=== PATIENT | female | born 1990 | race American Indian/Alaskan Native ===

== ENCOUNTER 2017-04-19 09:03 | Emergency (ER) | payer MEDICAID ==
[2017-04-19 09:41] VITALS: BP 105/56
--- NOTE | 2017-04-19 11:42 | Emergency Department Report ---
ED Female HPI - General Chief complaint: Abdominal Pain Stated complaint: PINK DISCHARGE Time Seen by Provider: 04/19/17 11:19 Source: patient Mode of arrival: Ambulatory Limitations: No Limitations - History of Present Illness Initial comments: 26-year-old female past medical history ovarian cysts, PID, recurrent UTIs presents with complaint of one week of slight pinkish vaginal discharge. Patient states that for approximately one week she has had slight intermittent pink vaginal discharge. LMP 03/17/17. Patient states that she is concerned that she may have been exposed to an STD as her significant other is currently having penile discharge. Patient is awake alert and oriented 3 nontoxic appearing no abdominal pain no nausea no vomiting no significant vaginal discharge at this time. Denies fevers or chills. MD Complaint: vaginal bleeding, vaginal discharge, pelvic pain Onset/Timin -: week(s) Location: suprapubic Radiation: suprapubic Severity: moderate Severity scale (0 -10): 2 Quality: cramping, aching Consistency: intermittent Worsens with: none Are you Now?: No Last Menstrual Period: 03/17/17 EDC: 12/22/17 Associated Symptoms: vaginal discharge (whitish vaginal discharge) - Related Data Sexually active: Yes : 3 Para: 2 Previous Rx's Medication Instructions Recorded Last Taken Type Doxycycline [Vibramycin CAP] 100 mg PO Q12HR #14 capsule 04/19/17 Unknown Rx Ibuprofen [Motrin] 600 mg PO Q8H PRN #30 tablet 04/19/17 Unknown Rx Allergies Allergy/AdvReac Type Severity Reaction Status Date / Time Penicillins Allergy Mild Hives Unverified 04/19/17 09:45 ED Review of Systems ROS: Stated complaint: PINK DISCHARGE Other details as noted in HPI Constitutional: denies: chills, fever Eyes: denies: eye pain, eye discharge, vision change ENT: denies: ear pain, throat pain Respiratory: denies: cough, shortness of breath, wheezing Cardiovascular: denies: chest pain, palpitations Endocrine: no symptoms reported Gastrointestinal: denies: abdominal pain, nausea, diarrhea Genitourinary: discharge. denies: urgency, dysuria Musculoskeletal: denies: back pain, joint swelling, arthralgia Skin: denies: rash, lesions Neurological: denies: headache, weakness, paresthesias Psychiatric: denies: anxiety, depression Hematological/Lymphatic: denies: easy bleeding, easy bruising ED Past Medical Hx - Past Medical History Previous Medical History?: No Hx Hypertension: No Hx CVA: No Hx Heart Attack/AMI: No Hx Congestive Heart Failure: No Hx Diabetes: No Hx Deep Vein Thrombosis: No Hx Pulmonary Embolism: No Hx GERD: Yes Hx Liver Disease: No Hx Renal Disease: No Hx of Cancer: No Hx Sickle Cell Disease: No Hx Arthritis: No Hx Headaches / Migraines: No Hx Seizures: No Hx Kidney Stones: No Hx Psychiatric Treatment: No Hx Asthma: No Hx COPD: No Hx Tuberculosis: No Hx Dementia: No Hx HIV: No Additional medical history: cyst on ovary. PID. Kidney infection. vaginal bacteria infection - Surgical History Past Surgical History?: Yes Additional Surgical History: C-sectionx1 - Social History Smoking Status: Never Smoker Substance Use Type: Alcohol, Marijuana - Medications Home Medications: Home Medications Medication Instructions Recorded Confirmed Last Taken Type Doxycycline [Vibramycin CAP] 100 mg PO Q12HR #14 capsule 04/19/17 Unknown Rx Ibuprofen [Motrin] 600 mg PO Q8H PRN #30 tablet 04/19/17 Unknown Rx ED Physical Exam - General Limitations: No Limitations General appearance: alert, in no apparent distress - Head Head exam: Present: atraumatic, normocephalic - Eye Eye exam: Present: normal appearance, PERRL, EOMI - ENT ENT exam: Present: mucous membranes moist - Neck Neck exam: Present: normal inspection, full ROM - Respiratory Respiratory exam: Present: normal lung sounds bilaterally. Absent: respiratory distress - Cardiovascular Cardiovascular Exam: Present: regular rate, normal rhythm. Absent: systolic murmur, diastolic murmur, rubs, gallop - GI/Abdominal GI/Abdominal exam: Present: soft (abdomen is soft nontender nondistended O4 quadrants, patient has no iliopsoas sign and no Rovsing sign no tenderness at McBurney's point), normal bowel sounds - External exam: Present: normal external exam Speculum exam: Present: normal speculum exam Bi-manual exam: Present: normal bi-manual exam - Extremities Exam Extremities exam: Present: normal inspection - Back Exam Back exam: Present: normal inspection - Neurological Exam Neurological exam: Present: alert, oriented X3, CN II-XII intact, normal gait - Psychiatric Psychiatric exam: Present: normal affect, normal mood - Skin Skin exam: Present: warm, dry, intact, normal color. Absent: rash ED Course Vital Signs 04/19/17 09:33 Temperature 98.1 F Pulse Rate 69 Respiratory 18 Rate Blood Pressure 105/56 O2 Sat by Pulse 100 Oximetry ED Medical Decision Making - Lab Data Result diagrams: 04/19/17 11:53 04/19/17 11:53 - Medical Decision Making A/P: possible PID, pelvic pain 1- no clinical signs of appendicitus, labs within normal limits, no clinical Rovsing sign and no peritoneal signs iliopsoas sign negative no tenderness at McBurney's point patient has no nausea no vomiting no diarrhea no fevers or chills and is clinically eating and drinking during my assessment of her. UA unremarkable, patient is not currently 2- will tx empirically as pt states her sex partner is having urethritis type symptoms. Will add course of doxycycline as patient states that she is having some intermittent pelvic pain 3- motrin PRN 4- pelvic exam unremarkable, wet prep unremarkable, Chlamydia and gonorrhea cultures sent. 5-I referred patient to primary care as well as [facility] Critical care attestation.: If time is entered above; I have spent that time in minutes in the direct care of this critically ill patient, excluding procedure time. ED Disposition Clinical Impression: Pelvic pain Disposition: PAT REG,NO TRIAGE Is pt being admited?: No Does the pt Need Aspirin: No Condition: Stable Instructions: Pelvic Inflammatory Disease (ED), Ovarian Cyst (ED) Prescriptions: Doxycycline [Vibramycin CAP] 100 mg PO Q12HR #14 capsule Ibuprofen [Motrin] 600 mg PO Q8H PRN #30 tablet PRN Reason: Pain Referrals: [facility] [Provider Group] - 3-5 Days [facility] [Provider Group] - 3-5 Days Forms: Accompanied Note, Work/School Release Form(ED)
[2017-04-19 12:04] LABS: Basophils % (Auto) 1.2 % (0.0-1.8); Eosinophils % (Auto) 0.9 % (0.0-4.3); Hematocrit 42.5 % (30.3-42.9); Hemoglobin 13.9 gm/dl (10.1-14.3); Mean Corpuscular HGB Conc 33 % (30-34); Mean Corpuscular Hemoglobin 29 pg (28-32); Mean Corpuscular Volume 89 fl (79-97); Platelet Count 214 K/mm3 (140-440); Red Blood Count 4.79 M/mm3 (3.65-5.03); White Blood Count 4.8 K/mm3 (4.5-11.0)
[2017-04-19 12:11] LABS: Bilirubin,Urine NEG (Negative); Blood,Urine NEG (Negative); Ketones,Urine NEG (Negative); Leukocyte Esterase,Urine NEG (Negative); Mucus,Urine 1+ /HPF; Nitrite,Urine NEG (Negative); Protein,Urine <15 mg/dL mg/dL (Negative)
[2017-04-19 12:23] LABS: Anion Gap 14 mmol/L; BUN/Creatinine Ratio 18; Blood Urea Nitrogen 11 mg/dL (7-17); Calcium 8.9 mg/dL (8.4-10.2); Carbon Dioxide 29 mmol/L (22-30); Chloride 103.2 mmol/L (98-107); Glucose 86 mg/dL (65-100); Potassium 4.2 mmol/L (3.6-5.0); Sodium 142 mmol/L (137-145)
[2017-04-19] MEDS ORDERED: ZITHROMAX PO ONE (13:34)
[2017-04-19] MEDS ORDERED: XYLOCAINE 1% MPF 5 mL INFILTRATI ONE (13:36)
[2017-04-19] MEDS ORDERED: ROCEPHIN IM ONE (13:36)
== END 2017-04-19 14:03 | disposition left against medical advice (07) ==
LOC: ED 09:03
DX: R10.2 Pelvic and perineal pain (principal); N89.8 Other specified noninflammatory disorders of vagina; K21.9 Gastro-esophageal reflux disease without esophagitis; F12.10 Cannabis abuse, uncomplicated; Z88.0 Allergy status to penicillin
CPT/HCPCS: 36415; 80048; 81001; 81025; 84702; 85025; 86850; 86900; 86901; 87086; 87210; 87591; 96372; 99284; J0696

== ENCOUNTER 2017-05-13 14:15 | Emergency (ER) | payer MEDICAID, OTHER ==
[2017-05-13 15:42] LABS: Anion Gap 17 mmol/L; BUN/Creatinine Ratio 21; Blood Urea Nitrogen 15 mg/dL (7-17); Carbon Dioxide 28 mmol/L (22-30); Chloride 101.2 mmol/L (98-107); Glucose 84 mg/dL (65-100); Potassium 3.9 mmol/L (3.6-5.0); Sodium 142 mmol/L (137-145)
[2017-05-13 15:49] LABS: Hematocrit 44.1 % (30.3-42.9); Hemoglobin 15.1 gm/dl (10.1-14.3); Mean Corpuscular HGB Conc 34 % (30-34); Mean Corpuscular Hemoglobin 30 pg (28-32); Mean Corpuscular Volume 87 fl (79-97); Platelet Count 138 K/mm3 (140-440); Red Cell Distribution Width 14.7 % (13.2-15.2); White Blood Count 3.9 K/mm3 (4.5-11.0)
[2017-05-13 16:01] LABS: Creatine Kinase 351 units/L (30-135)
[2017-05-13 16:14] LABS: Bacteria,Urine 1+ /HPF (Negative); Bilirubin,Urine NEG (Negative); Blood,Urine LG (Negative); Ketones,Urine TR mg/dL (Negative); Leukocyte Esterase,Urine NEG (Negative); Mucus,Urine FEW /HPF; Nitrite,Urine NEG (Negative); Urobilinogen,Urine < 2.0 mg/dL (<2.0)
[2017-05-13 16:38] LABS: Anisocytosis 1+; Basophils % (Manual) 0 % (0.0-1.8); Blastocytes % (Manual) 0 %; Eosinophils % (Manual) 0 % (0.0-4.3)
[2017-05-13 16:39] LABS: Diff Status Complete; Ovalocytes Few; Platelet Estimate Consistent w Auto; Poikilocytosis 1+
[2017-05-14] MEDS ORDERED: ZOFRAN IV ONE (06:34)
[2017-05-14] MEDS ORDERED: MORPHINE IV ONE (06:34)
--- NOTE | 2017-05-14 06:36 | Emergency Department Report ---
HPI - General Chief Complaint: Abdominal Pain Time Seen by Provider: 05/14/17 06:21 - HPI HPI: Room 24 The patient is a 26-year-old female presented with a chief complaint of abdominal pain. The patient states 3 days ago she developed a cough of productive. The patient states she only has chest pain when she coughs. The patient states for the past 1.5 weeks she's had intermittent right-sided abdominal pain sharp in nature. The patient states for the past 2 days the pain has been constant. Patient was to nausea but denies vomiting. Patient denies dysuria. Patient states she is currently on her cycle. Patient was to subjective fever at home with chills Location: [See above] Duration: [See above] Quality: Sharp Severity: Moderate Modifying factors: [see above] Context: [see above] Mode of transportation: [not driving] ED Past Medical Hx - Past Medical History Hx Congestive Heart Failure: Yes ( cardiomyopathy) Hx GERD: Yes Additional medical history: cyst on ovary. PID. Kidney infection. vaginal bacteria infection - Surgical History Additional Surgical History: C-sectionx1 - Family History Family history: no significant - Social History Smoking Status: Never Smoker Substance Use Type: Alcohol (occasional) - Medications Home Medications: Home Medications Medication Instructions Recorded Confirmed Last Taken Type Doxycycline [Vibramycin CAP] 100 mg PO Q12HR #14 capsule 04/19/17 Unknown Rx Ibuprofen [Motrin] 600 mg PO Q8H PRN #30 tablet 04/19/17 Unknown Rx Ciprofloxacin HCl [Ciprofloxacin 500 mg PO BID #20 tablet 05/14/17 Unknown Rx TAB] Ibuprofen 800 mg PO Q8H #20 tablet 05/14/17 Unknown Rx traMADol [Ultram] 50 mg PO Q6HR PRN #10 tablet 05/14/17 Unknown Rx ED Review of Systems ROS: Stated complaint: CHEST PAIN,SOB Other details as noted in HPI Comment: All other systems reviewed and negative Constitutional: denies: chills, fever Eyes: denies: eye pain, eye discharge, vision change ENT: denies: ear pain, throat pain Respiratory: cough Cardiovascular: chest pain. denies: palpitations Endocrine: no symptoms reported Gastrointestinal: abdominal pain, nausea. denies: vomiting Genitourinary: denies: urgency, dysuria, discharge Musculoskeletal: back pain Skin: denies: rash, lesions Neurological: denies: headache, weakness, paresthesias Psychiatric: denies: anxiety, depression Hematological/Lymphatic: denies: easy bleeding, easy bruising Physical Exam - Physical Exam Vital Signs: Vital Signs 05/13/17 05/14/17 05/14/17 15:02 06:18 06:19 Temperature 98.2 F Pulse Rate 74 74 60 Respiratory 20 13 12 Rate Blood Pressure 97/64 109/68 O2 Sat by Pulse 98 Oximetry 05/14/17 05/14/17 05/14/17 06:20 06:22 06:24 Temperature 98.5 F Pulse Rate 67 71 Respiratory 13 15 Rate Blood Pressure 109/68 109/68 O2 Sat by Pulse 98 Oximetry 05/14/17 06:27 Temperature Pulse Rate Respiratory 16 Rate Blood Pressure O2 Sat by Pulse 99 Oximetry Physical Exam: GENERAL: The patient is well-developed well-nourished female lying on stretcher not appearing to be in acute distress. [] HEENT: Normocephalic. Atraumatic. Extraocular motions are intact. Patient has moist mucous membranes. NECK: Supple. Trachea midline CHEST/LUNGS: Clear to auscultation. There is no respiratory distress noted. HEART/CARDIOVASCULAR: Regular. There is no tachycardia. There is no gallop rub or murmur. ABDOMEN: Abdomen is soft, nontender. Patient has normal bowel sounds. There is no abdominal distention. SKIN: There is no rash. There is no edema. There is no diaphoresis. NEURO: The patient is awake, alert, and oriented. The patient is cooperative. The patient has normal speech MUSCULOSKELETAL: There is no evidence of acute injury. ED Course Vital Signs 05/13/17 05/14/17 05/14/17 15:02 06:18 06:19 Temperature 98.2 F Pulse Rate 74 74 60 Respiratory 20 13 12 Rate Blood Pressure 97/64 109/68 O2 Sat by Pulse 98 Oximetry 05/14/17 05/14/17 05/14/17 06:20 06:22 06:24 Temperature 98.5 F Pulse Rate 67 71 Respiratory 13 15 Rate Blood Pressure 109/68 109/68 O2 Sat by Pulse 98 Oximetry 05/14/17 06:27 Temperature Pulse Rate Respiratory 16 Rate Blood Pressure O2 Sat by Pulse 99 Oximetry - Consultations Consultation #1: 05/14/17 09:05 Cardiology called 05/14/[address] Holly-recommends repeating one more set of cardiac enzymes and if negative the patient may be discharged home ED Medical Decision Making - Lab Data Result diagrams: 05/13/17 15:14 05/13/17 15:14 Laboratory Tests 05/13/17 05/13/17 05/13/17 15:14 15:14 15:19 WBC 3.9 L RBC 5.10 H Hgb 15.1 H Hct 44.1 H MCV 87 MCH 30 MCHC 34 RDW 14.7 Plt Count 138 L Add Manual Diff Complete Total Counted 100 Seg Neutrophils % Bindery Cutter Operator Seg Neuts % (Manual) 22.0 L Band Neutrophils % 6.0 Lymphocytes % (Manual) 58.0 H Reactive Lymphs % (Man) 3.0 Monocytes % (Manual) 11.0 H Eosinophils % (Manual) 0 Basophils % (Manual) 0 Metamyelocytes % 0 Myelocytes % 0 Promyelocytes % 0 Blast Cells % 0 Nucleated RBC % Not Reportable Seg Neutrophils # Man 0.9 L Band Neutrophils # 0.2 Lymphocytes # (Manual) 2.3 Abs React Lymphs (Man) 0.1 Monocytes # (Manual) 0.4 Eosinophils # (Manual) 0.0 Basophils # (Manual) 0.0 Metamyelocytes # 0.0 Myelocytes # 0.0 Promyelocytes # 0.0 Blast Cells # 0.0 WBC Morphology Not Reportable Hypersegmented Neuts Not Reportable Hyposegmented Neuts Not Reportable Hypogranular Neuts Not Reportable Smudge Cells Not Reportable Toxic Granulation Not Reportable Toxic Vacuolation Not Reportable Dohle Bodies Not Reportable Pelger-Huet Anomaly Not Reportable Ca Rods Not Reportable Platelet Estimate Consistent w auto Clumped Platelets Not Reportable Plt Clumps, EDTA Not Reportable Large Platelets Not Reportable Giant Platelets Not Reportable Platelet Satelliting Not Reportable Plt Morphology Comment Not Reportable RBC Morphology Not Reportable Dimorphic RBCs Not Reportable Polychromasia Not Reportable Hypochromasia Not Reportable Poikilocytosis 1+ Anisocytosis 1+ Microcytosis Not Reportable Macrocytosis Not Reportable Spherocytes Not Reportable Pappenheimer Bodies Not Reportable Sickle Cells Not Reportable Target Cells Not Reportable Tear Drop Cells Not Reportable Ovalocytes Few Helmet Cells Not Reportable [place] Bodies Not Reportable [place] Rings Not Reportable Sonido Cells Not Reportable Bite Cells Not Reportable Crenated Cell Not Reportable Elliptocytes Not Reportable Acanthocytes (Spur) Not Reportable Rouleaux Not Reportable Hemoglobin C Crystals Not Reportable Schistocytes Not Reportable Malaria parasites Not Reportable Adonis Bodies Not Reportable Hem Pathologist Commnt No Sodium 142 Potassium 3.9 Chloride 101.2 Carbon Dioxide 28 Anion Gap 17 BUN 15 Creatinine 0.7 Estimated GFR > 60 BUN/Creatinine Ratio 21 Glucose 84 Calcium 9.0 Total Creatine Kinase 351 H CK-MB (CK-2) 2.0 CK-MB (CK-2) Rel Index 0.5 Troponin T < 0.010 Urine Color Urine Turbidity Urine pH Ur Specific [place] Urine Protein Urine Glucose (UA) Urine Ketones Urine Blood Urine Nitrite Urine Bilirubin Urine Urobilinogen Ur Leukocyte Esterase Urine WBC (Auto) Urine RBC (Auto) U Epithel Cells (Auto) Urine Bacteria (Auto) Urine Mucus Urine HCG, Qual 05/13/17 15:38 WBC RBC Hgb Hct MCV MCH MCHC RDW Plt Count Add Manual Diff Total Counted Seg Neutrophils % Seg Neuts % (Manual) Band Neutrophils % Lymphocytes % (Manual) Reactive Lymphs % (Man) Monocytes % (Manual) Eosinophils % (Manual) Basophils % (Manual) Metamyelocytes % Myelocytes % Promyelocytes % Blast Cells % Nucleated RBC % Seg Neutrophils # Man Band Neutrophils # Lymphocytes # (Manual) Abs React Lymphs (Man) Monocytes # (Manual) Eosinophils # (Manual) Basophils # (Manual) Metamyelocytes # Myelocytes # Promyelocytes # Blast Cells # WBC Morphology Hypersegmented Neuts Hyposegmented Neuts Hypogranular Neuts Smudge Cells Toxic Granulation Toxic Vacuolation Dohle Bodies Pelger-Huet Anomaly Ca Rods Platelet Estimate Clumped Platelets Plt Clumps, EDTA Large Platelets Giant Platelets Platelet Satelliting Plt Morphology Comment RBC Morphology Dimorphic RBCs Polychromasia Hypochromasia Poikilocytosis Anisocytosis Microcytosis Macrocytosis Spherocytes Pappenheimer Bodies Sickle Cells Target Cells Tear Drop Cells Ovalocytes Helmet Cells [place] Bodies [place] Rings [place] Cells Bite Cells Crenated Cell Elliptocytes Acanthocytes (Spur) Rouleaux Hemoglobin C Crystals Schistocytes Malaria parasites Adonis Bodies Hem Pathologist Commnt Sodium Potassium Chloride Carbon Dioxide Anion Gap BUN Creatinine Estimated GFR BUN/Creatinine Ratio Glucose Calcium Total Creatine Kinase CK-MB (CK-2) CK-MB (CK-2) Rel Index Troponin T Urine Color Yellow Urine Turbidity Clear Urine pH 6.0 Ur Specific [place] 1.018 Urine Protein 30 mg/dl Urine Glucose (UA) Neg Urine Ketones Tr Urine Blood Lg Urine Nitrite Neg Urine Bilirubin Neg Urine Urobilinogen < 2.0 Ur Leukocyte Esterase Neg Urine WBC (Auto) 25.0 H Urine RBC (Auto) 83.0 U Epithel Cells (Auto) 1.0 Urine Bacteria (Auto) 1+ Urine Mucus Few Urine HCG, Qual Negative - EKG Data -: EKG Interpreted by Me EKG shows normal: sinus rhythm Rate: normal - EKG Data When compared to previous EKG there are: previous EKG unavailable Interpretation: nonspecific ST-T wave yamel (biphasic T waves in leads V4, V5. T- wave inversion in lead V6) - Radiology Data Radiology results: report reviewed (CT abdomen and pelvis), image reviewed (CT abdomen and pelvis, chest x-ray) interpreted by me: Chest [id number] left lower lobe infiltrate. No pneumothorax CT abdomen and pelvis (read by radiologist)-no acute process in the abdomen and pelvis patchy infiltrates in the lingula and left lower lobe. - Differential Diagnosis appendicitis, UTI, pyelonephritis, ACS, GERD, pneumonia Critical care attestation.: If time is entered above; I have spent that time in minutes in the direct care of this critically ill patient, excluding procedure time. ED Disposition Clinical Impression: Pneumonia, T wave inversion in EKG Disposition: DC-01 TO HOME OR SELFCARE Is pt being admited?: No Does the pt Need Aspirin: No Condition: Stable Instructions: Bacterial Pneumonia (ED), Abdominal Pain (ED) Additional Instructions: Return to the emergency department immediately should you develop worsening symptoms, fever, inability to tolerate food or liquid or any other concerns. Prescriptions: Ciprofloxacin HCl [Ciprofloxacin TAB] 500 mg PO BID #20 tablet Ibuprofen 800 mg PO Q8H #20 tablet traMADol [Ultram] 50 mg PO Q6HR PRN #10 tablet PRN Reason: Pain Referrals: PRIMARY CARE, [Primary Care Provider] - 3-5 Days EH HOLLY MD [Staff Physician] - 3-5 Days Time of Disposition: 10:23
[2017-05-14] MEDS ORDERED: MORPHINE ONE (06:50)
[2017-05-14] MEDS ORDERED: NACL ONE (07:13)
--- NOTE | 2017-05-14 07:43 | Cat Scan Report ---
FINAL REPORT EXAM: CT ABDOMEN PELVIS W CON HISTORY: right-sided abdominal pain TECHNIQUE: Routine axial imaging was obtained of the abdomen and pelvis following the intravenous injection of 100 cc of Omnipaque 300. Oral contrast was not administered. Sagittal and coronal reconstructions were reviewed FINDINGS: The lung bases reveal patchy infiltrates in the lingula and left lower lobe. Pleural fluid is not seen. The liver, gallbladder, pancreas, spleen, and adrenal glands appear normal. The kidneys enhance normally. The vascular structures also enhance normally. The bowel loops are normal in caliber and course. The appendix is normal in caliber. There is no evidence of free fluid or adenopathy. The uterus and bladder appear normal. The skeletal structures are well-maintained. IMPRESSION: No acute process in the abdomen and pelvis. Patchy infiltrates in the lingula and left lower lobe.
--- NOTE | 2017-05-14 09:06 | XRay Report ---
Chest 2 views: History: Chest pain and cough. Findings: Borderline cardiomegaly. Trachea is midline. Ill-defined airspace opacities lingula left lung. Normal CP angles. Impression: Pneumonia or discoid atelectasis lingula.
[2017-05-14 10:07] LABS: Creatine Kinase MB 1.4 ng/mL (0.0-4.0)
[2017-05-14 10:08] LABS: Creatine Kinase 200 units/L (30-135)
[2017-05-14 10:59] VITALS: BP 110/81
== END 2017-05-14 10:58 | disposition home or self-care (01) ==
LOC: ED 14:15
DX: J18.9 Pneumonia, unspecified organism (principal); K21.9 Gastro-esophageal reflux disease without esophagitis
CPT/HCPCS: 36415; 71020; 74177; 80048; 81001; 81025; 82550; 82553; 84484; 85007; 85025; 93005; 93010; 96374; 96375; 99284; J2270; J2405; Q9967

== ENCOUNTER 2018-09-02 15:25 | Emergency (ER) | payer SELFPAY ==
--- NOTE | 2018-09-02 15:35 | Emergency Department Report ---
Blank Doc - Documentation Documentation: This is a 28-year-old female that presents with left midback pain. Patient st ated symptoms started 08/30/2018. Patient stated is aggravated with movement relieved with rest. Stated has pain also with deep breathes. Denies any chest pain. Denies any other symptoms. V/S stables. Tenderness to left distal scapula. This initial assessment diagnostic orders/clinical plan/treatment(s) is/are subject to change based on patient's health status, clinical progression and re-assessment by fellow clinical providers in the ED. Further treatment and workup at subsequent clinical providers discretion. Patient/guardians urged not to elope from ED s their condition may be serious if not clinically assessed and managed. Initial orders include: 1-patient sent to [facility] for further evaluation and treatment.
--- NOTE | 2018-09-02 20:30 | XRay Report ---
FINAL REPORT PROCEDURE: XR CHEST ROUTINE 2V TECHNIQUE: PA and lateral chest radiographs were obtained. CPT 03205 HISTORY: left back pain COMPARISON: No prior studies are available for comparison. FINDINGS: Heart: Normal. Mediastinum/Vessels: Normal. Lungs/Pleural space: Normal. Bony thorax: No acute osseous abnormality. Other: IMPRESSION: Normal examination.
--- NOTE | 2018-09-02 20:57 | Emergency Department Report ---
ED General Adult HPI - General Chief complaint: Extremity Problem,Nontraumatic Stated complaint: BACK PAIN Time Seen by Provider: 09/02/18 15:31 Source: patient Mode of arrival: Ambulatory Limitations: No Limitations - History of Present Illness Initial comments: 28-year-old -[place] female presents to the emergency department. Pain to her left scapula and rib region and it been present since Cervantes's Day. States that she was doing her hair and after doing her hair. She went to work and noticed pain to that area when she raised her arms. Pain with associated shortness of breath, chest pain, hemoptysis,, hematemesis, hematochezia. She reported no numbness or tingling. She reported no palpitations. She reports no headache or or dizziness.. Pain is dull and and throbbing and she reports no previous history of any pain to that area. -: Sudden Radiation: back Severity scale (0 -10): 8 Consistency: constant Improves with: none Worsens with: other (deep breaths and certain movement) Associated Symptoms: denies other symptoms Treatments Prior to Arrival: none - Related Data Previous Rx's Medication Instructions Recorded Last Taken Type Doxycycline [Vibramycin CAP] 100 mg PO Q12HR #14 capsule 04/19/17 Unknown Rx Ibuprofen [Motrin] 600 mg PO Q8H PRN #30 tablet 04/19/17 Unknown Rx Ciprofloxacin HCl [Ciprofloxacin 500 mg PO BID #20 tablet 05/14/17 Unknown Rx TAB] Ibuprofen 800 mg PO Q8H #20 tablet 05/14/17 Unknown Rx traMADol [Ultram] 50 mg PO Q6HR PRN #10 tablet 05/14/17 Unknown Rx Ketorolac [Toradol] 10 mg PO Q6H PRN #15 tablet 09/02/18 Unknown Rx Allergies Allergy/AdvReac Type Severity Reaction Status Date / Time Penicillins Allergy Mild Hives Verified 05/14/17 06:51 ED Review of Systems ROS: Stated complaint: BACK PAIN Other details as noted in HPI Constitutional: denies: chills, fever Eyes: denies: eye pain, eye discharge, vision change ENT: denies: ear pain, throat pain Respiratory: denies: cough, shortness of breath, wheezing Cardiovascular: denies: chest pain, palpitations Endocrine: no symptoms reported Gastrointestinal: denies: abdominal pain, nausea, diarrhea Genitourinary: denies: urgency, dysuria, discharge Musculoskeletal: denies: back pain, joint swelling, arthralgia Skin: denies: rash, lesions Neurological: denies: headache, weakness, paresthesias Psychiatric: denies: anxiety, depression Hematological/Lymphatic: denies: easy bleeding, easy bruising ED Past Medical Hx - Past Medical History Previous Medical History?: Yes Hx Hypertension: No Hx CVA: No Hx Heart Attack/AMI: No Hx Congestive Heart Failure: Yes ( cardiomyopathy) Hx Diabetes: No Hx Deep Vein Thrombosis: No Hx Pulmonary Embolism: No Hx GERD: Yes Hx Liver Disease: No Hx Renal Disease: No Hx Sickle Cell Disease: No Hx Arthritis: No Hx Headaches / Migraines: No Hx Seizures: No Hx Kidney Stones: No Hx Psychiatric Treatment: No Hx Asthma: No Hx COPD: No Hx Tuberculosis: No Hx Dementia: No Hx HIV: No Additional medical history: cyst on ovary. PID. Kidney infection. vaginal bacteria infection - Surgical History Past Surgical History?: Yes Additional Surgical History: C-sectionx1 - Social History Smoking Status: Former Smoker Substance Use Type: Prescribed - Medications Home Medications: Home Medications Medication Instructions Recorded Confirmed Last Taken Type Doxycycline [Vibramycin CAP] 100 mg PO Q12HR #14 capsule 04/19/17 Unknown Rx Ibuprofen [Motrin] 600 mg PO Q8H PRN #30 tablet 04/19/17 Unknown Rx Ciprofloxacin HCl [Ciprofloxacin 500 mg PO BID #20 tablet 05/14/17 Unknown Rx TAB] Ibuprofen 800 mg PO Q8H #20 tablet 05/14/17 Unknown Rx traMADol [Ultram] 50 mg PO Q6HR PRN #10 tablet 05/14/17 Unknown Rx Ketorolac [Toradol] 10 mg PO Q6H PRN #15 tablet 09/02/18 Unknown Rx ED Physical Exam - General Limitations: No Limitations General appearance: alert, in no apparent distress - Head Head exam: Present: atraumatic, normocephalic, normal inspection - Eye Eye exam: Present: normal appearance, PERRL, EOMI. Absent: scleral icterus, nystagmus, periorbital swelling Pupils: Present: normal accommodation - ENT ENT exam: Present: normal exam, normal orophraynx, mucous membranes moist, TM's normal bilaterally, normal external ear exam - Neck Neck exam: Present: normal inspection, full ROM - Respiratory Respiratory exam: Present: normal lung sounds bilaterally. Absent: respiratory distress, wheezes, rales, rhonchi, chest wall tenderness, accessory muscle use, decreased breath sounds - Cardiovascular Cardiovascular Exam: Present: regular rate, normal rhythm. Absent: systolic murmur, diastolic murmur, rubs, gallop - GI/Abdominal GI/Abdominal exam: Present: soft, normal bowel sounds. Absent: tenderness, guarding, rebound, hyperactive bowel sounds, organomegaly - Extremities Exam Extremities exam: Present: normal inspection, full ROM, normal capillary refill - Back Exam Back exam: Present: normal inspection, other (the tenderness with palpation along the sternal border into the intercostal region of the left ribs. No swelling, no step-off, no seizure. No crepitus is appreciated. No bruising is appreciated. There is full range of motion of the left shoulder with no sulcus sign. No pain with [place], chest or branches. There is pain with apposed flexion and extending of the left shoulder. There is full range of motion with no limitations.Sounds are normal) - Neurological Exam Neurological exam: Present: alert, oriented X3, CN II-XII intact, normal gait - Psychiatric Psychiatric exam: Present: normal affect, normal mood - Skin Skin exam: Present: warm, dry, intact, normal color. Absent: rash ED Course Vital Signs 09/02/18 15:31 Temperature 98.3 F Pulse Rate 82 Respiratory 16 Rate Blood Pressure 123/69 O2 Sat by Pulse 100 Oximetry ED Medical Decision Making - Radiology Data Radiology results: report reviewed The neck x-ray is negative Critical care attestation.: If time is entered above; I have spent that time in minutes in the direct care of this critically ill patient, excluding procedure time. ED Disposition Clinical Impression: Musculoskeletal pain Disposition: DC-01 TO HOME OR SELFCARE Is pt being admited?: No Does the pt Need Aspirin: No Condition: Stable Instructions: Musculoskeletal Pain (ED), Thoracic Pain (ED) Prescriptions: Ketorolac [Toradol] 10 mg PO Q6H PRN #15 tablet PRN Reason: Pain Referrals: HIREN CALVIN MD [Primary Care Provider] - 3-5 Days [facility] [Provider Group] - 3-5 Days
[2018-09-02 21:29] VITALS: BP 116/67
== END 2018-09-02 21:35 | disposition home or self-care (01) ==
LOC: ED 15:25
DX: R07.81 Pleurodynia (principal); M25.512 Pain in left shoulder; K21.9 Gastro-esophageal reflux disease without esophagitis; I50.9 Heart failure, unspecified; Z87.891 Personal history of nicotine dependence; Z79.899 Other long term (current) drug therapy; Z88.0 Allergy status to penicillin
CPT/HCPCS: 71046; 99283

== ENCOUNTER 2018-12-29 08:59 | Emergency (ER) | payer MEDICAID, OTHER ==
[2018-12-29 10:17] LABS: Basophils % (Auto) 0.8 % (0.0-1.8); Eosinophils % (Auto) 0.6 % (0.0-4.3); Hematocrit 34.1 % (30.3-42.9); Hemoglobin 11.4 gm/dl (10.1-14.3); Lymphocytes # (Auto) 1.2 K/mm3 (1.2-5.4); Lymphocytes % (Auto) 20.7 % (13.4-35.0); Mean Corpuscular HGB Conc 34 % (30-34); Mean Corpuscular Volume 90 fl (79-97); Monocytes # (Auto) 0.4 K/mm3 (0.0-0.8); Monocytes % (Auto) 6.6 % (0.0-7.3); Platelet Count 195 K/mm3 (140-440); Red Blood Count 3.79 M/mm3 (3.65-5.03)
[2018-12-29 10:53] LABS: INR 1.28 (0.87-1.13); Partial Thromboplastin Time 25.2 Sec. (24.2-36.6)
[2018-12-29 11:30] LABS: Alanine Aminotransferase 20 units/L (7-56); Albumin 3.7 g/dL (3.9-5); BUN/Creatinine Ratio 20; Blood Urea Nitrogen 14 mg/dL (7-17); Calcium 8.6 mg/dL (8.4-10.2); Hemolysis Index 3
--- NOTE | 2018-12-29 11:32 | Ultrasound Report ---
PROCEDURE: US OB <= 14 WEEKS FETUS TECHNIQUE: HISTORY: preg bleeding abortifacient FINDINGS: Real-time ultrasound the pelvis was performed by transabdominal technique. The uterus measures 5.3 x 4.5 cm. The endometrial stripe measures 2.2 cm which is thickened. There is an echogenic structure in the upper vagina, which is likely a fetus, measuring approximately 2.6 cm. No cardiac activity is present. The right ovary measures 2.6 x 1.9 x 2.3 cm the left ovary 2.9 x 1.8 x 1.9 cm. There is no adnexal ma ss or evidence of ovarian torsion. IMPRESSION: Echogenic material in the vagina which is likely a fetus, without cardiac activity Thickened endometrial stripe Normal ovaries This document is electronically signed by Dallas Stephens MD., December 29 2018 11:29:50 AM ET
[2018-12-29 11:38] LABS: Bilirubin,Direct < 0.2 mg/dL (0-0.2)
[2018-12-29 12:48] LABS: Bilirubin,Urine NEG (Negative); Blood,Urine LG (Negative); Color,Urine Yellow (Yellow); Urobilinogen,Urine < 2.0 mg/dL (<2.0)
[2018-12-29 12:50] LABS: RBC,Urine > 182.0 /HPF (0.0-6.0)
--- NOTE | 2018-12-29 14:10 | Emergency Department Report ---
ED General Adult HPI - General Chief complaint: Vaginal Bleeding Stated complaint: VAGINAL BLEED Time Seen by Provider: 12/29/18 09:48 Source: patient, EMS Mode of arrival: Stretcher Limitations: No Limitations - History of Present Illness Initial comments: 8-year-old female who took a abortive sedation protocol which consisted of 2 pills taken twice in one day on 11/29/2018. The patient states that he has had some irregular bleeding for the last week. She noticed some clots today. She has followed up with OB at [place] since the chemical . She states that she was told on pelvic exam that she was "not anymore". However she states that an ultrasound was not done. She states that she had a 7 week . She does not know her blood type. She is not complaining of abdominal pain. -: Gradual, week(s) Severity scale (0 -10): 0 Consistency: now resolved Treatments Prior to Arrival: other (as above indicated) - Related Data Previous Rx's Medication Instructions Recorded Last Taken Type DOXYCYCLINE Hyclate [Vibramycin 100 mg PO Q12HR #14 capsule 04/19/17 Unknown Rx CAP] Ibuprofen [Motrin] 600 mg PO Q8H PRN #30 tablet 04/19/17 Unknown Rx Ciprofloxacin HCl [Ciprofloxacin 500 mg PO BID #20 tablet 05/14/17 Unknown Rx TAB] Ibuprofen 800 mg PO Q8H #20 tablet 05/14/17 Unknown Rx traMADol [Ultram] 50 mg PO Q6HR PRN #10 tablet 05/14/17 Unknown Rx Ketorolac [Toradol] 10 mg PO Q6H PRN #15 tablet 09/02/18 Unknown Rx HYDROcodone/APAP 5-325 [[place] 1 each PO Q6HR PRN #7 tablet 12/29/18 Unknown Rx 5/325] Allergies Allergy/AdvReac Type Severity Reaction Status Date / Time Penicillins Allergy Mild Hives Verified 05/14/17 06:51 ED Review of Systems ROS: Stated complaint: VAGINAL BLEED Other details as noted in HPI Constitutional: denies: chills, fever Eyes: denies: eye pain, eye discharge, vision change ENT: denies: ear pain, throat pain Respiratory: denies: cough, shortness of breath, wheezing Cardiovascular: denies: chest pain, palpitations Endocrine: no symptoms reported Gastrointestinal: denies: abdominal pain, nausea, diarrhea Genitourinary: as per HPI. denies: urgency, dysuria, discharge Musculoskeletal: denies: back pain, joint swelling, arthralgia Skin: denies: rash, lesions Neurological: denies: headache, weakness, paresthesias Psychiatric: denies: anxiety, depression Hematological/Lymphatic: denies: easy bleeding, easy bruising ED Past Medical Hx - Past Medical History Hx Hypertension: No Hx CVA: No Hx Heart Attack/AMI: No Hx Congestive Heart Failure: Yes ( cardiomyopathy) Hx Diabetes: No Hx Deep Vein Thrombosis: No Hx Pulmonary Embolism: No Hx GERD: Yes Hx Liver Disease: No Hx Renal Disease: No Hx Sickle Cell Disease: No Hx Arthritis: No Hx Headaches / Migraines: No Hx Seizures: No Hx Kidney Stones: No Hx Psychiatric Treatment: No Hx Asthma: No Hx COPD: No Hx Tuberculosis: No Hx Dementia: No Hx HIV: No Additional medical history: cyst on ovary. PID. Kidney infection. vaginal bacteria infection - Surgical History Additional Surgical History: C-sectionx1 - Social History Smoking Status: Current Some Day Smoker Substance Use Type: Alcohol, Marijuana - Medications Home Medications: Home Medications Medication Instructions Recorded Confirmed Last Taken Type DOXYCYCLINE Hyclate [Vibramycin 100 mg PO Q12HR #14 capsule 04/19/17 Unknown Rx CAP] Ibuprofen [Motrin] 600 mg PO Q8H PRN #30 tablet 04/19/17 Unknown Rx Ciprofloxacin HCl [Ciprofloxacin 500 mg PO BID #20 tablet 05/14/17 Unknown Rx TAB] Ibuprofen 800 mg PO Q8H #20 tablet 05/14/17 Unknown Rx traMADol [Ultram] 50 mg PO Q6HR PRN #10 tablet 05/14/17 Unknown Rx Ketorolac [Toradol] 10 mg PO Q6H PRN #15 tablet 09/02/18 Unknown Rx HYDROcodone/APAP 5-325 [[place] 1 each PO Q6HR PRN #7 tablet 12/29/18 Unknown Rx 5/325] ED Physical Exam - General Limitations: No Limitations General appearance: alert, in no apparent distress - Head Head exam: Present: atraumatic, normocephalic - Eye Eye exam: Present: normal appearance. Absent: scleral icterus - ENT ENT exam: Present: mucous membranes moist - Neck Neck exam: Present: normal inspection - Respiratory Respiratory exam: Present: normal lung sounds bilaterally. Absent: respiratory distress - Cardiovascular Cardiovascular Exam: Present: regular rate, normal rhythm. Absent: systolic murmur, diastolic murmur, rubs, gallop - GI/Abdominal GI/Abdominal exam: Present: soft, normal bowel sounds. Absent: distended, tenderness, guarding, rebound, rigid - Extremities Exam Extremities exam: Present: normal inspection - Back Exam Back exam: Present: normal inspection - Neurological Exam Neurological exam: Present: alert, oriented X3, CN II-XII intact. Absent: motor sensory deficit - Psychiatric Psychiatric exam: Present: normal affect, normal mood - Skin Skin exam: Present: warm, dry, intact, normal color. Absent: rash ED Course Vital Signs 12/29/18 12/29/18 12/29/18 09:11 09:15 09:22 Temperature 97.7 F Pulse Rate 74 65 Respiratory 12 12 Rate Blood Pressure 98/54 98/54 Blood Pressure [Right] O2 Sat by Pulse Oximetry 12/29/18 12/29/18 12/29/18 09:25 09:26 09:30 Temperature 97.7 F Pulse Rate 76 65 Respiratory 12 12 11 L Rate Blood Pressure 105/55 Blood Pressure 98/54 [Right] O2 Sat by Pulse 100 100 Oximetry 12/29/18 12/29/18 12/29/18 09:45 10:00 10:15 Temperature Pulse Rate 75 70 69 Respiratory 13 10 L 12 Rate Blood Pressure 105/55 102/45 103/46 Blood Pressure [Right] O2 Sat by Pulse Oximetry 12/29/18 12/29/18 10:31 10:51 Temperature Pulse Rate 95 H 104 H Respiratory 9 L 20 Rate Blood Pressure 107/36 107/36 Blood Pressure [Right] O2 Sat by Pulse Oximetry - Reevaluation(s) Reevaluation #1: Patient stable no further complaints. 12/29/18 14:08 ED Medical Decision Making - Lab Data Result diagrams: 12/29/18 09:51 12/29/18 10:17 Laboratory Results - last 24 hr 12/29/18 12/29/18 12/29/18 09:51 09:51 09:51 WBC 5.9 RBC 3.79 Hgb 11.4 Hct 34.1 MCV 90 MCH 30 MCHC 34 RDW 14.0 Plt Count 195 Lymph % (Auto) 20.7 [place] % (Auto) 6.6 Eos % (Auto) 0.6 Baso % (Auto) 0.8 Lymph # 1.2 [place] # 0.4 Eos # 0.0 Baso # 0.0 Seg Neutrophils % 71.3 H Seg Neutrophils # 4.2 PT INR APTT Sodium Potassium Chloride Carbon Dioxide Anion Gap BUN Creatinine Estimated GFR BUN/Creatinine Ratio Glucose Calcium Total Bilirubin Direct Bilirubin Indirect Bilirubin AST ALT Alkaline Phosphatase Total Protein Albumin Albumin/Globulin Ratio HCG, Qual Positive HCG, Quant 17.93 H Urine Color Urine Turbidity Urine pH Ur Specific [place] Urine Protein Urine Glucose (UA) Urine Ketones Urine Blood Urine Nitrite Urine Bilirubin Urine Urobilinogen Ur Leukocyte Esterase Urine WBC (Auto) Urine RBC (Auto) Blood Type 12/29/18 12/29/18 12/29/18 09:51 10:17 10:17 WBC RBC Hgb Hct MCV MCH MCHC RDW Plt Count Lymph % (Auto) [place] % (Auto) Eos % (Auto) Baso % (Auto) Lymph # [place] # Eos # Baso # Seg Neutrophils % Seg Neutrophils # PT 15.7 H INR 1.28 H APTT 25.2 Sodium 143 Potassium 4.3 Chloride 108.6 H Carbon Dioxide 27 Anion Gap 12 BUN 14 Creatinine 0.7 Estimated GFR > 60 BUN/Creatinine Ratio 20 Glucose 79 Calcium 8.6 Total Bilirubin 0.20 Direct Bilirubin < 0.2 Indirect Bilirubin 0.0 AST 20 ALT 20 Alkaline Phosphatase 24 L Total Protein 5.9 L Albumin 3.7 L Albumin/Globulin Ratio 1.7 HCG, Qual HCG, Quant Urine Color Urine Turbidity Urine pH Ur Specific [place] Urine Protein Urine Glucose (UA) Urine Ketones Urine Blood Urine Nitrite Urine Bilirubin Urine Urobilinogen Ur Leukocyte Esterase Urine WBC (Auto) Urine RBC (Auto) Blood Type O POSITIVE 12/29/18 Unknown WBC RBC Hgb Hct MCV MCH MCHC RDW Plt Count Lymph % (Auto) [place] % (Auto) Eos % (Auto) Baso % (Auto) Lymph # [place] # Eos # Baso # Seg Neutrophils % Seg Neutrophils # PT INR APTT Sodium Potassium Chloride Carbon Dioxide Anion Gap BUN Creatinine Estimated GFR BUN/Creatinine Ratio Glucose Calcium Total Bilirubin Direct Bilirubin Indirect Bilirubin AST ALT Alkaline Phosphatase Total Protein Albumin Albumin/Globulin Ratio HCG, Qual HCG, Quant Urine Color Yellow Urine Turbidity Turbid Urine pH 6.0 Ur Specific [place] 1.017 Urine Protein 100 mg/dl Urine Glucose (UA) 50 Urine Ketones Tr Urine Blood Lg Urine Nitrite Neg Urine Bilirubin Neg Urine Urobilinogen < 2.0 Ur Leukocyte Esterase Neg Urine WBC (Auto) 3.0 Urine RBC (Auto) > 182.0 Blood Type Critical care attestation.: If time is entered above; I have spent that time in minutes in the direct care of this critically ill patient, excluding procedure time. ED Disposition Clinical Impression: Inevitable , Vaginal bleeding Disposition: TO HOME OR SELFCARE Is pt being admited?: No Does the pt Need Aspirin: No Condition: Stable Instructions: Spontaneous Miscarriage (ED) Additional Instructions: If you do not pass the fetus it is possible that a D&C will be required. Follow-up with your OB physician concerning this. Medication as needed for pain. Prescriptions: HYDROcodone/APAP 5-325 [[place] 5/325] 1 each PO Q6HR PRN #7 tablet PRN Reason: Pain Referrals: HIREN CALVIN MD [Primary Care Provider] - 3-5 Days Time of Disposition: 14:10
[2018-12-29 14:20] VITALS: BP 76/40
== END 2018-12-29 14:42 | disposition home or self-care (01) ==
LOC: ED 08:59
DX: N93.9 Abnormal uterine and vaginal bleeding, unspecified (principal); K21.9 Gastro-esophageal reflux disease without esophagitis; F17.200 Nicotine dependence, unspecified, uncomplicated; F12.10 Cannabis abuse, uncomplicated
CPT/HCPCS: 36415; 76801; 80048; 80076; 81001; 84702; 84703; 85025; 85610; 85730; 86900; 86901

== ENCOUNTER 2019-05-17 10:53 | Emergency (ER) | payer SELFPAY ==
[2019-05-17 10:58] VITALS: BP 111/69
--- NOTE | 2019-05-17 11:57 | Emergency Department Report ---
ED Back Pain/Injury HPI - General Chief Complaint: Back Pain/Injury Stated Complaint: BACK PAIN Time Seen by Provider: 05/17/19 11:34 Source: patient Mode of arrival: Ambulatory Limitations: No Limitations - History of Present Illness Initial Comments: This is a 28-year-old female who presents to the emergency room with acute on chronic low back pain. Patient reports pain is intermittent over the past 3 months. Reports similar history 2 years ago. Reports pain is 7 out of 10 on pain scale achy intensity that is intermittent. Patient reports pain is worse with movement. She is currently doing exercises taking NSAIDs with minimal improvement of symptoms. Unsure of last menstrual period due to Depovera control. She denies injury, numbness or tingling, swelling, weakness, paresthesias, change in urinary or bowel pattern. MD Complaint: back pain Onset/Timin -: month(s) Similar Symptoms Previously: Yes (2 years ago) Place: home Radiation: none Severity: moderate Severity scale (0 -10): 7 Quality: aching Consistency: intermittent Improves With: none Worsens With: movement Context: unknown Associated Symptoms: denies: numbness, difficulty urinating, incontinence, fever/chills Treatments Prior to Arrival: NSAIDS - Related Data Previous Rx's Medication Instructions Recorded Last Taken Type DOXYCYCLINE Hyclate [Vibramycin 100 mg PO Q12HR #14 capsule 04/19/17 Unknown Rx CAP] Ibuprofen [Motrin] 600 mg PO Q8H PRN #30 tablet 04/19/17 Unknown Rx Ciprofloxacin HCl [Ciprofloxacin 500 mg PO BID #20 tablet 05/14/17 Unknown Rx TAB] Ibuprofen 800 mg PO Q8H #20 tablet 05/14/17 Unknown Rx traMADol [Ultram] 50 mg PO Q6HR PRN #10 tablet 05/14/17 Unknown Rx Ketorolac [Toradol] 10 mg PO Q6H PRN #15 tablet 09/02/18 Unknown Rx HYDROcodone/APAP 5-325 [[place] 1 each PO Q6HR PRN #7 tablet 12/29/18 Unknown Rx 5/325] Ibuprofen [Motrin 800 MG tab] 800 mg PO Q8HR PRN #20 tablet 05/17/19 Unknown Rx Methocarbamol [Robaxin] 500 mg PO BID PRN #15 tablet 05/17/19 Unknown Rx Allergies Allergy/AdvReac Type Severity Reaction Status Date / Time Penicillins Allergy Mild Hives Verified 05/14/17 06:51 ED Review of Systems ROS: Stated complaint: BACK PAIN Other details as noted in HPI Constitutional: denies: chills, fever Respiratory: denies: cough, shortness of breath, wheezing Cardiovascular: denies: chest pain, palpitations Gastrointestinal: denies: abdominal pain, nausea, diarrhea Musculoskeletal: back pain. denies: joint swelling, arthralgia Skin: denies: rash, lesions Neurological: denies: headache, weakness, paresthesias Psychiatric: denies: anxiety, depression ED Past Medical Hx - Past Medical History cyst on ovary. PID. Kidney infection. vaginal bacteria infection Family history: no significant family history ED Back Pain Physical Exam - Exam General: Vital signs noted. No distress. Alert and acting appropriately. Back/Abdomen: Yes Perithoracic Tenderness (bilaterally, no erythema swelling, midline tenderness, stepoff or deformity), No Abdominal Tenderness, No Perilumbar Tenderness, No Sacroiliac Tenderness, No Flank Tenderness, No Straight Leg Raise Pain Neuro: Yes Normal Sensation, Yes Normal DTR's, Yes Normal Gait, No Motor Weakness ED Course Vital Signs 05/17/19 10:57 Temperature 98.8 F Pulse Rate 58 L Respiratory 18 Rate Blood Pressure 111/69 O2 Sat by Pulse 100 Oximetry Ed Back Pain Tests - Tests Tests: Normal UA, Normal X Rays ED Medical Decision Making - Lab Data Lab Results 05/17/19 Range/Units 12:03 Urine Color Yellow (Yellow) Urine Turbidity Slightly-cloudy (Clear) Urine pH 5.0 (5.0-7.0) Ur Specific [place] 1.015 (1.003-1.030) Urine Protein <15 mg/dl (Negative) mg/dL Urine Glucose (UA) Neg (Negative) mg/dL Urine Ketones Neg (Negative) mg/dL Urine Blood Neg (Negative) Urine Nitrite Neg (Negative) Urine Bilirubin Neg (Negative) Urine Urobilinogen < 2.0 (<2.0) mg/dL Ur Leukocyte Esterase Neg (Negative) Urine WBC (Auto) 1.0 (0.0-6.0) /HPF Urine RBC (Auto) 1.0 (0.0-6.0) /HPF U Epithel Cells (Auto) 9.0 (0-13.0) /HPF Urine Mucus Few /HPF Urine HCG, Qual Negative (Negative) - Radiology Data Radiology results: report reviewed THORACIC SPINE RADIOGRAPHS / XR spine thoracic 3V INDICATION: Back pain since last night. COMPARISON: 09/02/2018 CXR. FINDINGS: AP, lateral and swimmer's view to evaluate thoracic spine demonstrate vertebral body stature, alignment and disc heights. No abnormal paraspinal density. Clear imaged lungs. IMPRESSION: No acute thoracic spine radiographic abnormality, as described. - Medical Decision Making Patient was examined by me. Patient is nontoxic appearing and stable. Vitals are normal. Obtained UA, urine , & x-ray of thoracic spine. All labs unremarkable and thoracic spine negative for acute findings. Physical findings susceptible of thoracic muscle strain. Patient informed of results. Instructed to take Tylenol or ibuprofen for pain. Referral to Orthopedic and PCP for follow up. Return to the ER with worsening symptoms. Patient discharged home in stable condition. Critical care attestation.: If time is entered above; I have spent that time in minutes in the direct care of this critically ill patient, excluding procedure time. ED Disposition Clinical Impression: Strain of muscle and tendon of back wall of thorax, initial encounter Back pain Qualifiers: Back pain location: thoracic back pain Chronicity: acute Back pain laterality: bilateral Qualified Code(s): M54.6 - Pain in thoracic spine Disposition: - TO HOME OR SELFCARE Is pt being admited?: No Condition: Stable Instructions: Muscle Strain (ED), Arthralgia (ED), Core Strengthening Exercises (GEN) Additional Instructions: Rest Use ice or heat on affected area for 20 minutes and off for 2 hours. Take pain medication as needed for pain. Don't drive or operate heavy machinery while taking muscle relaxers because they may cause drowsiness. Follow up with Primary Care Provider in 2-3 days. Prescriptions: Ibuprofen [Motrin 800 MG tab] 800 mg PO Q8HR PRN #20 tablet PRN Reason: Pain , Severe (7-10) Methocarbamol [Robaxin] 500 mg PO BID PRN #15 tablet PRN Reason: Muscle Spasm Referrals: [facility] [Outside] - 3-5 Days [facility] [Outside] - 3-5 Days [facility] [Outside] - 3-5 Days Forms: Work/School Release Form(ED) Time of Disposition: 14:00
[2019-05-17 12:30] LABS: Bilirubin,Urine NEG (Negative); Blood,Urine NEG (Negative); Color,Urine Yellow (Yellow); HCG Qualitative,Urine Negative (Negative); Mucus,Urine FEW /HPF; Protein,Urine <15 mg/dL mg/dL (Negative); Urobilinogen,Urine < 2.0 mg/dL (<2.0)
--- NOTE | 2019-05-17 13:40 | XRay Report ---
THORACIC SPINE RADIOGRAPHS / XR spine thoracic 3V INDICATION: Back pain since last night. COMPARISON: 09/02/2018 CXR. FINDINGS: AP, lateral and swimmer's view to evaluate thoracic spine demonstrate vertebral body statur e, alignment and disc heights. No abnormal paraspinal density. Clear imaged lungs. IMPRESSION: No acute thoracic spine radiographic abnormality, as described. Thank you for the opportunity to participate in this patient's care. Signer Name: Sindi Eldridge Signed: 05/17/2019 1:36 PM Workstation Name: [id number]
== END 2019-05-17 14:09 | disposition home or self-care (01) ==
LOC: ED 10:53
DX: S29.012A Strain of muscle and tendon of back wall of thorax, initial encounter (principal); Z79.899 Other long term (current) drug therapy; Z88.0 Allergy status to penicillin; X58.XXXA Exposure to other specified factors, initial encounter; Y93.89 Activity, other specified; Y92.89 Other specified places as the place of occurrence of the external cause; Y99.8 Other external cause status
CPT/HCPCS: 72072; 81001; 81025